=== PATIENT | female | born 1990 | race Caucasian/White ===

== ENCOUNTER 2019-09-21 09:21 | Inpatient (IN) | payer OTHER ==
[~2019-09-21] VITALS: Ht 160 cm; Wt 63.6 kg
[2019-09-21] MEDS: ONDANSETRON HCL 4 MG/2 ML VIAL IVP ONE ×2 (09:54→11:44)
[2019-09-21] MEDS: SODIUM CHLORIDE 0.9% 1,000 ML IV ONE ×2 (09:54→11:44)
[2019-09-21 10:06] LABS: ANION GAP 5 mmol/L (8-16); BASOPHILS % (AUTO) 0.4 % (0.0-2.0); CALCIUM, TOTAL 9.2 mg/dL (8.8-10.5); CARBON DIOXIDE 28 mmol/L (22-29); CHLORIDE 101 mmol/L (98-107); CREATININE 0.73 mg/dL (0.60-1.30); EOSINOPHILS % (AUTO) 0.5 % (1.0-6.0); GLOMERULAR FILTR. RATE CALC > 60 mL/min (>60); GLUCOSE,RANDOM 94 mg/dL (70-110); HEMATOCRIT 42.1 % (36-46); HEMOGLOBIN 13.9 g/dL (12.0-16.0); LYMPHOCYTES # (AUTO) 1.3 K/uL (1.0-4.8); LYMPHOCYTES % (AUTO) 15.8 % (22.0-44.0); MEAN CORPUSCULAR HGB CONC 33.1 G/dL (31.0-37.0); MEAN CORPUSCULAR VOLUME 88 fL (80-100); MONOCYTES # (AUTO) 0.6 K/uL (0.1-1.0); MONOCYTES % (AUTO) 6.8 % (2.0-9.0); NEUTROPHILS # (AUTO) 6.3 K/uL (1.8-7.7); NEUTROPHILS % (AUTO) 76.5 % (40.0-70.0); POTASSIUM 3.9 mmol/L (3.5-5.1); RED BLOOD CELL COUNT(AUTO) 4.81 MIL/uL (4.00-5.20); RED CELL DISTRIBUTION WIDTH 13.2 % (11.5-14.5); SODIUM SERUM 134 mmol/L (136-145); UREA NITROGEN, BLOOD 13 mg/dL (7-18)
[2019-09-21 10:12] LABS: PLATELET COUNT (AUTO) 189 K/uL (150-450)
[2019-09-21 10:17] LABS: ALANINE AMINOTRANSFERASE 23 U/L (12-78); ALBUMIN 3.8 g/dL (3.4-5.0); ALKALINE PHOSPHATASE 53 U/L (46-116); ASPARTATE AMINOTRANSFERASE 21 U/L (15-37); BILIRUBIN,TOTAL 0.4 mg/dL (0.1-1.0); HCG,QUANTITATIVE < 1 mIU/mL (0-6); TOTAL PROTEIN, SERUM 7.4 g/dL (6.4-8.2)
[2019-09-21] MEDS ORDERED: ACETAMINOPHEN 325 MG TABLET PO PRN (10:30)
[2019-09-21] MEDS ORDERED: ONDANSETRON HCL 4 MG/2 ML VIAL IVP PRN (10:30)
[2019-09-21] MEDS ORDERED: ZOLPIDEM TARTRATE 5 MG TABLET PO PRN (10:30)
[2019-09-21] MEDS ORDERED: SODIUM CHLORIDE 0.9% 1,000 ML IV ONE (10:30)
[2019-09-21] MEDS ORDERED: MAGNESIUM HYDROXIDE SUSPENSION 30 ML UDCUP PO PRN (10:30)
[2019-09-21 13:16] VITALS: BP 129/81
[2019-09-21] MEDS: FAMOTIDINE 20 MG TABLET PO SCH (20:07)
[2019-09-21 21:05] VITALS: BP 107/52
[2019-09-22 05:49] VITALS: BP 117/65
[2019-09-22 09:16] VITALS: BP 105/58
[2019-09-22] MEDS: FAMOTIDINE 20 MG TABLET PO SCH ×2 (09:39→20:33)
[2019-09-22 13:43] LABS: AMPHET/METH SCREEN,URINE POSITIVE (NEGATIVE); BARBITURATE SCREEN, URINE NEGATIVE (NEGATIVE); BENZODIAZEPINES SCREEN,URINE NEGATIVE (NEGATIVE); CANNABINOID SCREEN,URINE NEGATIVE (NEGATIVE); COCAINE SCREEN,URINE NEGATIVE (NEGATIVE); METHADONE SCREEN, URINE NEGATIVE (NEGATIVE); OPIATE SCREEN,URINE POSITIVE (NEGATIVE); PHENCYCLIDINE SCREEN,URINE NEGATIVE (NEGATIVE)
[2019-09-22 16:45] VITALS: BP 116/70
[2019-09-22 20:00] VITALS: BP 112/74
[2019-09-23 04:28] VITALS: BP 112/80
[2019-09-23 08:07] VITALS: BP 98/56
[2019-09-23] MEDS: FAMOTIDINE 20 MG TABLET PO SCH ×3 (08:59→20:21)
[2019-09-23 15:32] VITALS: BP 116/67
[2019-09-23 19:58] VITALS: BP 109/69
[2019-09-24 04:58] VITALS: BP 136/66
[2019-09-24 08:11] VITALS: BP 99/65
[2019-09-24] MEDS: FAMOTIDINE 20 MG TABLET PO SCH (08:56)
== END 2019-09-24 16:10 | DRG 897 ==
LOC: EMS 09:22 → 6S 10:28
PROVIDERS: ADMIT Internal Medicine; ATTEND Internal Medicine
DX: F11.23 Opioid dependence with withdrawal (principal); F17.210 Nicotine dependence, cigarettes, uncomplicated; F15.10 Other stimulant abuse, uncomplicated; Z02.89 Encounter for other administrative examinations
CPT/HCPCS: G0480; J2405; J7030